=== PATIENT | female | born 1935 | race Caucasian/White ===

== ENCOUNTER 2023-06-27 15:08 | Outpatient (CLI) | payer MEDICARE | END 2023-06-27 15:09 | disposition home or self-care (01) | LOC: SCSRAD 15:08 | PROVIDERS: ATTEND Nurse Practitioner Family | DX: M54.6 Pain in thoracic spine (principal); M54.50 Low back pain, unspecified; M53.3 Sacrococcygeal disorders, not elsewhere classified; M47.816 Spondylosis without myelopathy or radiculopathy, lumbar region; M46.06 Spinal enthesopathy, lumbar region; M89.38 Hypertrophy of bone, other site | CPT/HCPCS: 72072; 72100; 72220 ==